=== PATIENT | female | born 1970 | race American Indian/Alaskan Native ===

== ENCOUNTER 2017-10-23 20:00 | Emergency (ER) | payer MEDICARE ==
[2017-10-23 21:00] LABS: Basophils # (Auto) 0.1 K/mm3 (0.0-0.1); Basophils % (Auto) 1.2 % (0.0-1.8); Eosinophils # (Auto) 0.3 K/mm3 (0.0-0.4); Eosinophils % (Auto) 5.8 % (0.0-4.3); Hematocrit 30.8 % (30.3-42.9); Hemoglobin 9.6 gm/dl (10.1-14.3); Lymphocytes # (Auto) 1.8 K/mm3 (1.2-5.4); Lymphocytes % (Auto) 33.5 % (13.4-35.0); Mean Corpuscular HGB Conc 31 % (30-34); Mean Corpuscular Volume 78 fl (79-97); Monocytes # (Auto) 0.7 K/mm3 (0.0-0.8); Platelet Count 330 K/mm3 (140-440); Red Blood Count 3.98 M/mm3 (3.65-5.03); Red Cell Distribution Width 17.8 % (13.2-15.2)
[2017-10-23 21:09] LABS: Mean Corpuscular Hemoglobin 24 pg (28-32)
[2017-10-23 21:13] LABS: BUN/Creatinine Ratio 10; Blood Urea Nitrogen 9 mg/dL (7-17); Calcium 9.2 mg/dL (8.4-10.2); Hemolysis Index 5
[2017-10-24] MEDS ORDERED: ATROVENT IH ONE ×2 (00:44→02:29)
[2017-10-24] MEDS ORDERED: XOPENEX IH ONE (00:44)
[2017-10-24] MEDS ORDERED: ASPIRIN PO ONE (01:00)
--- NOTE | 2017-10-24 01:03 | Emergency Department Report ---
HPI - General Chief Complaint: Chest Pain Time Seen by Provider: 10/24/17 00:38 - HPI HPI: Room 19 The patient is a 47-year-old female presenting with chief complaint of shortness of breath and chest pain. The patient states at approximately 04:00 yesterday after cleaning her room she developed shortness of breath. The patient states that approximately 05:00 yesterday she developed intermittent substernal chest pain described as a pressure/tightness associated with the shortness of breath, which patient states always accompanies her asthma exacerbations. Patient states symptoms persisted throughout today. Patient currently gives her chest tightness a score of 9.5/10. The patient states she is currently in a treatment program for crack use. Patient states her last crack use occurred 10/06/2017 Location: Chest, lungs Duration: [See above] Quality: Tightness/pressure Severity: 9.5/10 Modifying factors: [see above] Context: [see above] Mode of transportation: [not driving] ED Past Medical Hx - Past Medical History Hx GERD: Yes Hx Asthma: Yes (bronchitis) - Surgical History Additional Surgical History: c- section x4, left upper arm skin graft, tubal ligation - Family History Family history: no significant - Social History Smoking Status: Current Every Day Smoker (1/2 pack per day) Substance Use Type: Cocaine (history of crack use. None since 10/06/2017) - Medications Home Medications: Home Medications Medication Instructions Recorded Confirmed Last Taken Type ALBUTEROL Inhaler [Proair] 2 puff IH QID PRN #1 inhalation 10/24/17 Unknown Rx Azithromycin [Zithromax Z-MALLORIE] 0 mg PO DAILY #6 tab 10/24/17 Unknown Rx Prednisone [predniSONE 10 mg 10 mg PO .TAPER #1 tab.ds.pk 10/24/17 Unknown Rx (6-Day Pack, 21 Tabs)] ED Review of Systems ROS: Stated complaint: CHEST PAIN,SOB Other details as noted in HPI Constitutional: diaphoresis Eyes: denies: eye pain Respiratory: shortness of breath Cardiovascular: chest pain Gastrointestinal: nausea. denies: vomiting Genitourinary: denies: dysuria Musculoskeletal: denies: back pain Neurological: denies: headache Physical Exam - Physical Exam Vital Signs: Vital Signs 10/23/17 20:12 Temperature 98.2 F Pulse Rate 101 H Respiratory 22 Rate Blood Pressure 112/74 O2 Sat by Pulse 100 Oximetry Physical Exam: GENERAL: The patient is well-developed well-nourished female sitting on stretcher exhibiting slightly labored respirations. [] HEENT: Normocephalic. Atraumatic. Extraocular motions are intact. Patient has moist mucous membranes. NECK: Supple. Trachea midline CHEST/LUNGS: Diffuse wheezing. There is slight increased work of breathing HEART/CARDIOVASCULAR: Regular. There is no tachycardia. There is no gallop rub or murmur. ABDOMEN: Abdomen is soft, nontender. Patient has normal bowel sounds. There is no abdominal distention. SKIN: There is no rash. There is no edema. There is no diaphoresis. NEURO: The patient is awake, alert, and oriented. The patient is cooperative. The patient has normal speech MUSCULOSKELETAL: There is no evidence of acute injury. ED Course Vital Signs 10/23/17 20:12 Temperature 98.2 F Pulse Rate 101 H Respiratory 22 Rate Blood Pressure 112/74 O2 Sat by Pulse 100 Oximetry ED Medical Decision Making - Lab Data Result diagrams: 10/23/17 20:24 10/23/17 20:24 Laboratory Tests 10/23/17 10/23/17 10/23/17 20:24 20:24 23:22 WBC 5.5 RBC 3.98 Hgb 9.6 L Hct 30.8 MCV 78 L MCH 24 L MCHC 31 RDW 17.8 H Plt Count 330 Lymph % (Auto) 33.5 [place] % (Auto) 12.0 H Eos % (Auto) 5.8 H Baso % (Auto) 1.2 Lymph # 1.8 [place] # 0.7 Eos # 0.3 Baso # 0.1 Seg Neutrophils % 47.5 Seg Neutrophils # 2.6 Sodium 140 Potassium 3.9 Chloride 101.8 Carbon Dioxide 24 Anion Gap 18 BUN 9 Creatinine 0.9 Estimated GFR > 60 BUN/Creatinine Ratio 10 Glucose 80 Calcium 9.2 Troponin T < 0.010 < 0.010 10/24/17 01:45 WBC RBC Hgb Hct MCV MCH MCHC RDW Plt Count Lymph % (Auto) [place] % (Auto) Eos % (Auto) Baso % (Auto) Lymph # [place] # Eos # Baso # Seg Neutrophils % Seg Neutrophils # Sodium Potassium Chloride Carbon Dioxide Anion Gap BUN Creatinine Estimated GFR BUN/Creatinine Ratio Glucose Calcium Troponin T < 0.010 - EKG Data -: EKG Interpreted by Me EKG shows normal: sinus rhythm Rate: normal - EKG Data When compared to previous EKG there are: previous EKG unavailable Interpretation: other (no ischemic changes seen) - Radiology Data Radiology results: report reviewed (chest x-ray), image reviewed (chest x-ray) interpreted by me: Chest x-ray-no focal infiltrates, no pneumothorax [facility] [address] [place] [address] XRay Report Signed Patient: BONILLA BARRAZA MR#: [id number] : 1970 Acct:[id number] Age/Sex: 47 / F ADM Date: 10/23/17 Loc: ED Attending Dr: Ordering Physician: JEANIE VERDUZCO MD Date of Service: 10/24/17 Procedure(s): XR chest 1V ap Accession Number(s): [id number] cc: JEANIE VERDUZCO MD Fluoro Time In Minutes: FINAL REPORT EXAM: XR CHEST 1V AP HISTORY: chest pain TECHNIQUE: A portable upright view the chest was obtained. FINDINGS: The heart size and mediastinum appear normal. The lungs are clear. The lungs are not congested. The bones and soft tissues are well maintained. IMPRESSION: No active chest disease. Transcribed By: RB Dictated By: LIZY RODRIGUEZ MD Electronically Authenticated By: LIZY RODRIGUEZ MD Signed Date/Time: 10/24/17114 DD/ 4 TD/TT: 10/24/17114 - Differential Diagnosis asthma exacerbation, ACS, pericarditis, pneumonia, GERD Critical care attestation.: If time is entered above; I have spent that time in minutes in the direct care of this critically ill patient, excluding procedure time. ED Disposition Clinical Impression: Shortness of breath, Acute asthma exacerbation, Bronchitis Disposition: DC-01 TO HOME OR SELFCARE Is pt being admited?: No Does the pt Need Aspirin: No Condition: Stable Instructions: Chest Pain (ED), Chronic Bronchitis (ED) Additional Instructions: Return to the emergency department immediately should you develop worsening symptoms, fever, inability to tolerate food or liquid or any other concerns. Prescriptions: ALBUTEROL Inhaler [Proair] 2 puff IH QID PRN #1 inhalation PRN Reason: Shortness Of Breath Azithromycin [Zithromax Z-MALLORIE] 0 mg PO DAILY #6 tab Prednisone [predniSONE 10 mg (6-Day Pack, 21 Tabs)] 10 mg PO .TAPER #1 tab.ds.pk Referrals: PRIMARY CARE, [Primary Care Provider] - 3-5 Days [facility] [Outside] - 3-5 Days Time of Disposition: 03:56
--- NOTE | 2017-10-24 01:19 | XRay Report ---
FINAL REPORT EXAM: XR CHEST 1V AP HISTORY: chest pain TECHNIQUE: A portable upright view the chest was obtained. FINDINGS: The heart size and mediastinum appear normal. The lungs are clear. The lungs are not congested. The bones and soft tissues are well maintained. IMPRESSION: No active chest disease.
[2017-10-24] MEDS ORDERED: PROVENTIL IH ONE (02:29)
[2017-10-24 04:34] VITALS: BP 110/74
== END 2017-10-24 04:35 | disposition home or self-care (01) ==
LOC: ED 20:00
DX: J45.901 Unspecified asthma with (acute) exacerbation (principal); K21.9 Gastro-esophageal reflux disease without esophagitis; F17.200 Nicotine dependence, unspecified, uncomplicated; Z98.51 Tubal ligation status
CPT/HCPCS: 36415; 71045; 80048; 84484; 85025; 93005; 93010; 94640; 96374; 99284; J2930